=== PATIENT | female | born 1955 | race Caucasian/White ===

== ENCOUNTER 2018-08-01 10:49 | Outpatient (CLI) | payer OTHER | END 2018-08-01 10:50 | disposition home or self-care (01) | LOC: BICMAMMO 10:49 | PROVIDERS: ATTEND Internal Medicine | DX: Z12.31 Encounter for screening mammogram for malignant neoplasm of breast (principal); Z85.3 Personal history of malignant neoplasm of breast; Z80.3 Family history of malignant neoplasm of breast; Z98.890 Other specified postprocedural states | CPT/HCPCS: 77063; 77067 ==

== ENCOUNTER 2019-03-24 17:34 | Outpatient (CLI) | payer BC, OTHER ==
[~2019-03-24 17:34] MED LIST: Iopamidol 370 76% 100 ML VIAL ONE
--- NOTE | 2019-03-24 18:18 | CT ---
CTA Angio Chest W WO Con History: Elevated d-dimer Comparison: Chest radiograph 03/12/2017 Findings: CT angiogram chest performed after the intravenous administration of contrast. 3-D renderin g provided. No proximal segmental pulmonary arterial filling defect. No pericardial effusion. No pneumothorax. No effusion. No airspace consolidation. No acute osseous abnormality. Heart size is enlarged. Diffuse hepatic steatosis. Impression: No pulmonary embolism nor other acute intrathoracic abnormality. Ordering provider notified of findings via telephone at 6:13 PM
== END 2019-03-24 17:35 | disposition home or self-care (01) ==
LOC: SCSRAD 17:34
PROVIDERS: ATTEND Physician Assistant
DX: Z03.89 Encounter for observation for other suspected diseases and conditions ruled out (principal)
CPT/HCPCS: 71275; 82565; Q9967

== ENCOUNTER 2019-09-08 08:25 | Outpatient (CLI) | payer BC ==
--- NOTE | 2019-09-08 09:44 | MMO ---
Bilateral MAMMO Bilat Screen [facility]. CLINICAL HISTORY: Patient is 64 years old and is seen for screening. The patient has no family history of breast cancer. The patient has no personal history of cancer. 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 VIEWS: The views performed were: bilateral craniocaudal with tomosynthesis and bilateral mediolateral oblique with tomosynthesis. FILMS COMPARED: The present examination has been compared to prior imaging studies performed at [facility] on 07/17/2015, 07/20/2016, 07/21/2017 and 08/01/2018. This study has been interpreted with the assistance of computer-aided detection. MAMMOGRAM FINDINGS: There are scattered fibroglandular densities. There is a stable post-surgical scar seen in the right breast. There are no suspicious masses, suspicious calcifications, or new areas of architectural distortion. IMPRESSION: THERE IS NO MAMMOGRAPHIC EVIDENCE OF MALIGNANCY. A ROUTINE FOLLOW-UP MAMMOGRAM IN 1 YEAR IS RECOMMENDED. THE RESULTS OF THIS EXAM WERE SENT TO THE PATIENT. ACR BI-RADS Category 2 - Benign finding MAMMOGRAPHY NOTE: 1. A negative mammogram report should not delay a biopsy if a dominant of clinically suspicious mass is present. 2. Approximately 10% to 15% of breast cancers are not detected by mammography. 3. Adenosis and dense breasts may obscure an underlying neoplasm. Reported by: THEA OLVERA MD Electonically Signed: [id number]
== END 2019-09-08 08:26 | disposition home or self-care (01) ==
LOC: BICMAMMO 08:25
PROVIDERS: ATTEND Internal Medicine
DX: Z12.31 Encounter for screening mammogram for malignant neoplasm of breast (principal); Z98.890 Other specified postprocedural states
CPT/HCPCS: 77063; 77067

== ENCOUNTER 2020-09-12 08:59 | Outpatient (CLI) | payer MEDICARE ==
--- NOTE | 2020-09-12 10:30 | MMO ---
Bilateral MAMMO Bilat Screen [facility]. CLINICAL HISTORY: Patient is 65 years old and is seen for screening. The patient has no family history of breast cancer. The patient has no personal history of cancer. 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 VIEWS: The views performed were: bilateral craniocaudal with tomosynthesis and bilateral mediolateral oblique with tomosynthesis. FILMS COMPARED: The present examination has been compared to prior imaging studies performed at [facility] on 07/20/2016, 07/21/2017, 08/01/2018 and 09/08/2019. This study has been interpreted with the assistance of computer-aided detection. MAMMOGRAM FINDINGS: There are scattered fibroglandular densities. Finding 1: There are stable benign appearing calcifications seen in both breasts. Finding 2: There is a stable area of architectural distortion with associated post-surgical scar seen in the right breast. There are no suspicious masses, suspicious calcifications, or new areas of architectural distortion. IMPRESSION: THERE IS NO MAMMOGRAPHIC EVIDENCE OF MALIGNANCY. A ROUTINE FOLLOW-UP MAMMOGRAM IN 1 YEAR IS RECOMMENDED. THE RESULTS OF THIS EXAM WERE SENT TO THE PATIENT. ACR BI-RADS Category 2 - Benign finding MAMMOGRAPHY NOTE: 1. A negative mammogram report should not delay a biopsy if a dominant of clinically suspicious mass is present. 2. Approximately 10% to 15% of breast cancers are not detected by mammography. 3. Adenosis and dense breasts may obscure an underlying neoplasm. Reported by: KADY MCBRIDE MD Electonically Signed: [id number]
== END 2020-09-12 09:00 | disposition home or self-care (01) ==
LOC: BICMAMMO 08:59
PROVIDERS: ATTEND Internal Medicine
DX: Z12.31 Encounter for screening mammogram for malignant neoplasm of breast (principal); Z98.890 Other specified postprocedural states
CPT/HCPCS: 77063; 77067

== ENCOUNTER 2020-11-15 09:02 | Outpatient (CLI) | payer MEDICARE ==
--- NOTE | 2020-11-15 11:13 | MRI ---
MRI cervical spine noncontrast HISTORY: Neck pain with right arm radiculopathy. FINDINGS: Vertebral body heights and alignment are maintained. There is desiccation of all of the int ervertebral discs, with the exception of the C5-6 level where there is interbody fusion, likely postoperative. Bone marrow signal is heterogeneous without focal abnormality. Images including the neck show a 0.7 cm cyst within the left thyroid lobe. C2-3: Mild osteophytosis. Central canal and neural foramina are patent. C3-4: Mild osteophytosis. Central canal and neural foramina are patent. C4-5: Disc space narrowing. Posterior osteophyte/disc complex, greater to the left. Minimal effacemen t of the ventral aspect of the thecal sac and spinal cord. No abnormal signal within the cord. Right neural foramen is patent. Severe stenosis left neural foramen. C5-6: Presumed postoperative changes with interbody fusion. Central canal and neural foramina are pat ent. C6-7: Mild disc space narrowing. Mild left posterolateral osteophyte/disc complex. No significant lizette tral canal or neural foraminal stenosis. C7-T1: Minimal degenerative spondylolisthesis. Central canal and neural foramina are patent. T1-2: Disc space narrowing. Left posterolateral disc protrusion extends into the inferior aspect of t he left neural foramen with possible compression of the left T1 nerve root. IMPRESSION : Postoperative and degenerative changes as detailed above. More pronounced on the left at the C4-5 and T1-2 levels. Clinical correlation regarding the left C5 and T1 dermatomes is required. No focal abnormalities to explain right-sided symptoms.
--- NOTE | 2020-11-15 12:29 | RAD ---
5 views of the cervical spine: 11/15/2020 COMPARISON: None HISTORY: Acute cervical radiculopathy FINDINGS: On the neutral lateral examination there is no significant anterolisthesis or retrolisthesi s noted. There is disc space narrowing with degenerative endplate change as well as anterior and posterior osteophyte at C4-5. Mild disc space narrowing and anterior osteophyte formation at C3-4. Di sc space narrowing with posterior and anterior osteophyte formation as well as degenerative endplate change present at C7-T1. There is intervertebral disc fusion at the C5-6 level. On the flexion imaging there is mild anterolisthesis at C2-3 measuring 3-4 mm, and at C3-4 measuring 2 mm. There is no anterolisthesis or retrolisthesis seen on the extension imaging. There is bilateral facet and uncovertebral osteophyte formation on frontal imaging at the C4-5 level. The open-mouth odontoid view demonstrates a normal-appearing dens and C1-2 articulation. IMPRESSION: Multilevel degenerative change within the cervical spine as described above.
== END 2020-11-15 09:03 | disposition home or self-care (01) ==
LOC: BICMRI 09:02 → RAD 09:03
PROVIDERS: ATTEND Anesthesiology Pain Medicine
DX: M47.22 Other spondylosis with radiculopathy, cervical region (principal); Z98.1 Arthrodesis status
CPT/HCPCS: 72052; 72141

== ENCOUNTER 2020-12-20 10:49 | Outpatient (CLI) | payer MEDICARE | END 2020-12-20 10:50 | disposition home or self-care (01) | LOC: BICMRI 10:49 | PROVIDERS: ATTEND Anesthesiology Pain Medicine | DX: S46.011A Strain of muscle(s) and tendon(s) of the rotator cuff of right shoulder, initial encounter (principal) ==

== ENCOUNTER 2021-09-15 08:41 | Outpatient (CLI) | payer MEDICARE | END 2021-09-15 08:42 | disposition home or self-care (01) | LOC: BICMAMMO 08:41 | PROVIDERS: ATTEND Internal Medicine | DX: Z12.31 Encounter for screening mammogram for malignant neoplasm of breast (principal); Z98.890 Other specified postprocedural states | CPT/HCPCS: 77063; 77067 ==

== ENCOUNTER 2022-07-09 10:47 | Outpatient (CLI) | payer OTHER | END 2022-07-09 10:48 | disposition home or self-care (01) | LOC: DTY/OP 10:47 | PROVIDERS: ATTEND Internal Medicine | DX: E66.9 Obesity, unspecified (principal) | CPT/HCPCS: 97802 ==

== ENCOUNTER 2022-10-01 13:53 | Outpatient (CLI) | payer MEDICARE | END 2022-10-01 13:54 | disposition home or self-care (01) | LOC: BICMAMMO 13:53 | PROVIDERS: ATTEND Internal Medicine | DX: Z12.31 Encounter for screening mammogram for malignant neoplasm of breast (principal); Z85.3 Personal history of malignant neoplasm of breast; Z98.890 Other specified postprocedural states | CPT/HCPCS: 77063; 77067 ==

== ENCOUNTER 2023-10-25 10:37 | Outpatient (CLI) | payer MEDICARE | END 2023-10-25 10:38 | disposition home or self-care (01) | LOC: BICMAMMO 10:37 | PROVIDERS: ATTEND Internal Medicine | DX: Z12.31 Encounter for screening mammogram for malignant neoplasm of breast (principal); Z85.3 Personal history of malignant neoplasm of breast; Z98.890 Other specified postprocedural states | CPT/HCPCS: 77063; 77067 ==

== ENCOUNTER 2024-02-29 13:15 | Outpatient (CLI) | payer MEDICARE | END 2024-02-29 13:16 | disposition home or self-care (01) | LOC: BICULT 13:15 | PROVIDERS: ATTEND Urology | DX: N20.0 Calculus of kidney (principal); N39.41 Urge incontinence; Z98.890 Other specified postprocedural states | CPT/HCPCS: 76770 ==